=== PATIENT | female | born 1995 | race Caucasian/White ===

== ENCOUNTER → 2024-02-08 13:29 | Outpatient (REF) | payer OTHER, SELFPAY | LOC: RSP 13:29 | PROVIDERS: ATTENDING PHYSICIAN Internal Medicine Rheumatology; FAMILY PHYSICIAN Family Medicine | DX: M34.9 Systemic sclerosis, unspecified (principal); L94.0 Localized scleroderma [morphea] | CPT/HCPCS: 94727; 94729; 88738; 94010 ==

== ENCOUNTER → 2024-07-26 14:59 | Outpatient (REF) | payer OTHER, SELFPAY | LOC: RCS 14:59 | PROVIDERS: ATTENDING PHYSICIAN Internal Medicine Rheumatology; FAMILY PHYSICIAN Family Medicine | DX: R93.89 Abnormal findings on diagnostic imaging of other specified body structures (principal); M34.9 Systemic sclerosis, unspecified; Z79.899 Other long term (current) drug therapy | CPT/HCPCS: 93306 ==